=== PATIENT | male | born 1950 | race African-American/Black ===

== ENCOUNTER 2022-05-19 02:10 | Emergency (ER) | payer MEDICARE, MEDICAID ==
[~2022-05-19] VITALS: Ht 167.6 cm; Wt 59.0 kg
[2022-05-19] MEDS ORDERED: FUROSEMIDE 100MG/10ML VIAL IV STA (02:54)
[2022-05-19] MEDS ORDERED: CALCIUM CHLORIDE 1GM/10ML SYR IV ONE (03:00)
[2022-05-19] MEDS ORDERED: INSULIN REGULAR (HUMULIN R) 300UNITS/3ML VIAL IV ONE (03:00)
[2022-05-19] MEDS ORDERED: DEXTROSE 50% WATER 50ML SYRINGE IV ONE (03:00)
[2022-05-19] MEDS ORDERED: ALBUTEROL (0.083%) 2.5MG/3ML NEB HHN ONE (03:00)
[2022-05-19] MEDS ORDERED: SODIUM BICARBONATE 8.4% 1 MEQ/ML 50ML SYR IV ONE (03:00)
[2022-05-19 03:04] LABS: HEMATOCRIT 44.3 % (42.0-52.0); MEAN CORPUSCULAR HEMOGLOBIN 28.8 pg (28.0-32.0); RED BLOOD CELL COUNT 5.22 mill/uL (4.7-6.1); RED CELL DISTRIBUTION WIDTH 17.2 % (11.6-14.6)
[2022-05-19 03:12] LABS: CHLORIDE 104 mEq/L (98-107)
[2022-05-19 04:09] LABS: PLATELET 1667 x1000/uL (130-400)
[2022-05-19 10:22] VITALS: BP 119/56
== END 2022-05-19 12:12 ==
LOC: ER 02:31
DX: E11.22 Type 2 diabetes mellitus with diabetic chronic kidney disease (principal); N18.6 End stage renal disease; R03.0 Elevated blood-pressure reading, without diagnosis of hypertension; D69.6 Thrombocytopenia, unspecified; I50.9 Heart failure, unspecified; Z99.2 Dependence on renal dialysis; Z79.84 Long term (current) use of oral hypoglycemic drugs; Z79.4 Long term (current) use of insulin; Z79.899 Other long term (current) drug therapy
CPT/HCPCS: 36415; 80053; 82962; 85027; 93005; 94644; 99285; Z7610